=== PATIENT | male | born 1955 | race Two or more races ===

== ENCOUNTER 2022-12-18 07:13 | Day surgery (SDC) | payer OTHER, MEDICAID ==
[~2022-12-18] VITALS: Ht 167.6 cm; Wt 70.3 kg
[~2022-12-18 07:13] MED LIST: LOSA100T58 PO
[2022-12-18] MEDS ORDERED: ceFAZolin 2 GM/D5W100ml 100 ML IV ONE (10:17)
[2022-12-18] MEDS ORDERED: MEPERIDINE HCL (25 MG/ML) 1ML VIAL ONE (11:30)
[2022-12-18] MEDS ORDERED: fentaNYL CITRATE 100 MCG/2 ML VL ONE ×2 (11:30→13:51)
[2022-12-18] MEDS ORDERED: MIDAZOLAM HCL 2MG/2ML 2ml VIAL (1mg/ml) ONE (11:30)
[2022-12-18] MEDS ORDERED: PROPOFOL 10 MG/ML 20 ML IV ONE ×3 (11:53→14:43)
[2022-12-18] MEDS ORDERED: DexAMETHasone SOD PHOS 10MG/1ML VIAL INJ ONE ×2 (11:53→13:51)
[2022-12-18] MEDS ORDERED: LIDOCAINE W/ EPINEPHRINE 1% 20ML VIAL ONE (13:10)
[2022-12-18] MEDS ORDERED: GLYCOPYRROLATE 0.2 MG/ML 1ML VIAL ONE (13:51)
[2022-12-18] MEDS ORDERED: ONDANSETRON HCL 4 MG/2 ML VIAL ONE (13:51)
[2022-12-18] MEDS ORDERED: KETOROLAC TROMETH 30 MG/ML 1ML VIAL ONE (13:51)
[2022-12-18] MEDS ORDERED: HYDROmorphone HCL 2 MG/ML VL/or syr ONE (14:56)
[2022-12-18 15:13] VITALS: RESP 12; TEMP 97.2; O2SAT 100
[2022-12-18] MEDS ORDERED: HYDROmorphone HCL 2 MG/ML VL/or syr IV PRN (15:30)
[2022-12-18] MEDS ORDERED: ONDANSETRON HCL 4 MG/2 ML VIAL IV PRN (15:30)
[2022-12-18 16:15] VITALS: BP 120/76; PULSE 59; RESP 10; O2SAT 96
== END 2022-12-18 16:35 | disposition home or self-care (01) ==
LOC: SUR 07:13
PROVIDERS: ATTEND Surgery
DX: K40.90 Unilateral inguinal hernia, without obstruction or gangrene, not specified as recurrent (principal); K40.91 Unilateral inguinal hernia, without obstruction or gangrene, recurrent; K21.9 Gastro-esophageal reflux disease without esophagitis
CPT/HCPCS: 49520; 86850; 86900; 86901; 88302; C1781; J1100; J1170; J1885; J2175; J2405; J2704; J3010; J2250